=== PATIENT | female | born 1945 | race American Indian/Alaskan Native ===

== ENCOUNTER 2017-03-19 04:22 | Emergency (ER) | payer MEDICARE ==
[2017-03-19 04:22] VITALS: BMI 28.6
[2017-03-19 04:48] VITALS: O2SAT 98
--- NOTE | 2017-03-19 04:59 | ED PDOC ---
Arrival/HPI - General Chief Complaint: Abdominal Pain Time Seen by Provider: 03/19/17 04:52 Historian: Patient - History of Present Illness Narrative History of Present Illness (Text): 03/19/17 04:56 Aysah Edmondson is a 71 year old female, whose past medical history includes hypertension, hyperlipidemia, and asthma, who presents to the Emergency department complaining of right-sided flank pain radiating to her right abdomen tonight. Patient notes she was recently seen in the Emergency department for dysuria on 03/13/2017, diagnosed with a UTI, and discharged home on antibiotics. Patient states dysuria resolved 2 days prior but developed right- sided flank pain radiating to her right abdomen tonight. Patient denies any fever, chills, chest pain, shortness of breath, nausea, vomiting, diarrhea, neck pain, headache, dizziness, or any other complaints. Symptom Onset: Gradual Symptom Course: Unchanged Activities at Onset: Light Context: Home Past Medical History - Provider Review Nursing Documentation Reviewed: Yes - Infectious Disease Hx of Infectious Diseases: None - Tetanus Immunization Tetanus Immunization: Unknown - Reproductive Menopause: Yes - Cardiac Hx Cardiac Disorders: Yes Hx Hypertension: Yes - Pulmonary Hx Respiratory Disorders: Yes Hx Bronchitis: Yes - Neurological Hx Neurological Disorder: No - HEENT Hx HEENT Disorder: No (glasses) - Renal Hx Renal Disorder: No - Endocrine/Metabolic Hx Endocrine Disorders: No - Hematological/Oncological Hx Blood Disorders: No - Integumentary Hx Dermatological Disorder: No - Musculoskeletal/Rheumatological Hx Musculoskeletal Disorders: No - Gastrointestinal Hx Gastrointestinal Disorders: No - Genitourinary/Gynecological Hx Genitourinary Disorders: No - Psychiatric Hx Psychophysiologic Disorder: No Hx Substance Use: No - Past Surgical History Past Surgical History: No Previous - Surgical History Hx Hysterectomy: Yes Other/Comment: ovarian cyst removed; arteriogram - Anesthesia Hx Anesthesia: Yes Hx Anesthesia Reactions: No Hx Malignant Hyperthermia: No - Suicidal Assessment Feels Threatened In Home Enviroment: No Family/Social History - Physician Review Nursing Documentation Reviewed: Yes Family/Social History: Unknown Family HX Smoking Status: Never Smoked Hx Alcohol Use: No Hx Substance Use: No Hx Substance Use Treatment: No Allergies/Home Meds Allergies/Adverse Reactions: Allergies No Known Allergies Allergy (Verified 03/19/17 04:48) Home Medications: Home Meds Medication Instructions Recorded Confirmed Valsartan/Hydrochlorothiazide 1 tab PO DAILY 03/13/17 03/19/17 [Valsartan-Hctz 80-12.5 mg Tab] cloNIDine [Catapres] 0.2 mg PO TID 03/13/17 03/19/17 Review of Systems - Physician Review All systems were reviewed & negative as marked: Yes - Review of Systems Constitutional: Normal. absent: Fevers Eyes: Normal ENT: Normal Respiratory: Normal. absent: SOB, Cough Cardiovascular: Normal. absent: Chest Pain Gastrointestinal: Abdominal Pain. absent: Diarrhea, Nausea, Vomiting Genitourinary Female: Normal. absent: Dysuria, Frequency, Hematuria, Urine Output Changes Musculoskeletal: Back Pain. absent: Neck Pain Skin: Normal. absent: Rash Neurological: Normal. absent: Headache, Dizziness Endocrine: Normal Hemo/Lymphatic: Normal Psychiatric: Normal Physical Exam Vital Signs Reviewed: Yes Vital Signs Temp Pulse Resp BP Pulse Ox 03/19/17 04:43 99 F 78 18 174/97 H 98 03/19/17 04:35 99.0 F 61 16 174/97 H 99 Temperature: Afebrile Blood Pressure: Normal Pulse: Regular Respiratory Rate: Normal Appearance: Positive for: Well-Appearing, Non-Toxic, Comfortable Pain Distress: None Mental Status: Positive for: Alert and Oriented X 3 - Systems Exam Head: Present: Atraumatic, Normocephalic Pupils: Present: PERRL Extroacular Muscles: Present: EOMI Conjunctiva: Present: Normal Mouth: Present: Moist Mucous Membranes Neck: Present: Normal Range of Motion Respiratory/Chest: Present: Clear to Auscultation, Good Air Exchange. No: Respiratory Distress, Accessory Muscle Use Cardiovascular: Present: Regular Rate and Rhythm, Normal S1, S2. No: Murmurs Abdomen: Present: Normal Bowel Sounds. No: Tenderness, Distention, Peritoneal Signs Back: Present: Normal Inspection Upper Extremity: Present: Normal Inspection. No: Cyanosis, Edema Lower Extremity: Present: Normal Inspection. No: Edema Neurological: Present: GCS=15, CN II-XII Intact, Speech Normal Skin: Present: Warm, Dry, Normal Color. No: Rashes Psychiatric: Present: Alert, Oriented x 3, Normal Insight, Normal Concentration Medical Decision Making ED Course and Treatment: 03/19/17 04:56 Impression: 71 year old female complaining of right flank pain radiating to right abdomen tonight. Plan: -- Labs -- Urinalysis -- IV fluids -- Reassess and disposition Prior Visits: Notes and results from previous visits were reviewed. On 03/13/2017, pt was seen in the Emergency department for dysuria. Pt was d/c home on antibiotics. Progress Notes: - Lab Interpretations Lab Results: 03/19/17 05:22 03/19/17 05:22 Lab Results 03/19/17 05:22: WBC 3.8 L D, RBC 4.19, Hgb 12.3, Hct 36.9, MCV 88.1, MCH 29.4, MCHC 33.3, RDW 13.0, Plt Count 185, MPV 10.5 03/19/17 05:22: Sodium 141, Potassium 3.8, Chloride 105, Carbon Dioxide 26, Anion Gap 13, BUN 14, Creatinine 1.1, Est GFR ( Amer) 59, Est GFR (Non- Af Amer) 49, Random Glucose 104, Calcium 9.5, Total Bilirubin 0.5, AST 32, ALT 26, Alkaline Phosphatase 56, Total Protein 8.3, Albumin 4.5, Globulin 3.7, Albumin/Globulin Ratio 1.2 03/19/17 05:22: Urine Color Yellow, Urine Appearance Sl cloudy, Urine pH 6.0, Ur Specific [place] 1.025, Urine Protein Trace H, Urine Glucose (UA) Negative, Urine Ketones Negative, Urine Blood Negative, Urine Nitrate Negative, Urine Bilirubin Negative, Urine Urobilinogen 0.2, Ur Leukocyte Esterase Large H, Urine RBC 0 - 2, Urine WBC 25 - 30, Ur Epithelial Cells 10 - 12, Urine Bacteria Many - RAD Interpretation Radiology Orders: 03/19/17 06:42 ABD & PELVIS IV CONTRAST ONLY [CT] Stat - Medication Orders Current Medication Orders: Sodium Chloride (Sodium Chloride 0.9%) 1,000 mls @ 100 mls/hr IV .Q10H MAGDALENA Last Admin: 03/19/17 05:23 Dose: 100 mls/hr eMAR Start Stop Document 03/19/17 05:23 DERRICK (Rec: 03/19/17 05:23 DERRICK [id number]) Intravenous Solution Start Date 03/19/17 Start Time 05:23 Discontinued Medications Ketorolac Tromethamine (Toradol) 30 mg IVP ONCE ONE Stop: 03/19/17 06:39 - Transfer of Care Patient signed out to Patrick: [place] Pending Radiology Studies:: Ct Abdomen/pelvis/UA/reassess/final disposition - Scribe Statement The provider has reviewed the documentation as recorded by the Aleksey Brice Provider Scribe Attestation: All medical record entries made by the Scribe were at my direction and personally dictated by me. I have reviewed the chart and agree that the record accurately reflects my personal performance of the history, physical exam, medical decision making, and the department course for this patient. I have also personally directed, reviewed, and agree with the discharge instructions and disposition. Disposition/Present on Arrival - Present on Arrival Any Indicators Present on Arrival: No History of DVT/PE: No History of Uncontrolled Diabetes: No Urinary Catheter: No History of Decub. Ulcer: No History Surgical Site Infection Following: None - Disposition Have Diagnosis and Disposition been Completed?: No Diagnosis: Abdominal pain Disposition Time: 07:00 Patient Problems: Current Active Problems Problem Status Onset Abdominal pain Acute Condition: STABLE Referrals: Navi Leonard MD [Primary Care Provider] - Follow up with primary Forms: [employer] (Swedish)
[2017-03-19] MEDS ORDERED: Sodium Chloride 0.9% 1,000 ML IV SCH (05:00)
[2017-03-19 06:00] LABS: URINE BILIRUBIN NEGATIVE (NEGATIVE); URINE BLOOD NEGATIVE (NEGATIVE); URINE GLUCOSE (UA) NEGATIVE (NEGATIVE); URINE LEUKOCYTE ESTERASE LARGE Leu/uL (NEGATIVE); URINE NITRATE NEGATIVE (NEGATIVE); URINE PROTEIN TRACE mg/dL (<30 mg/dL); URINE UROBILINOGEN 0.2 E.U./dL (<1 E.U./dL)
[2017-03-19 06:20] LABS: ALB/GLOB RATIO 1.2 (1.1-1.8); ALBUMIN 4.5 g/dL (3.0-4.8); CALCIUM 9.5 mg/dL (8.4-10.5); HEMOGLOBIN 12.3 g/dL (12.0-16.0); MEAN CELL VOLUME 88.1 fl (80.0-105.0); RBC 4.19 10^6/uL (3.5-6.1); WHITE BLOOD COUNT 3.8 10^3/ul (4.5-11.0)
[2017-03-19 06:21] LABS: MEAN CORPUSCULAR HEMOGLOBIN 29.4 pg (25.0-35.0); MEAN CORPUSCULAR HGB CONC 33.3 g/dl (31.0-37.0); MEAN PLATELET VOLUME 10.5 fl (7.0-11.0)
[2017-03-19 06:54] LABS: URINE APPEARANCE SL CLOUDY (CLEAR); URINE COLOR YELLOW (YELLOW)
[2017-03-19 06:56] LABS: URINE BACTERIA MANY (NEG); URINE RBC 0 - 2 /hpf (0-2); URINE WBC 25 - 30 /hpf (0-6)
--- NOTE | 2017-03-19 07:16 | ED PDOC ---
Physical Exam Vital Signs Temp Pulse Resp BP Pulse Ox 03/19/17 08:00 66 16 145/80 98 03/19/17 04:43 99 F 78 18 174/97 H 98 03/19/17 04:35 99.0 F 61 16 174/97 H 99 Medical Decision Making ED Course and Treatment: 03/19/17 07:00 Case signed out to me by Dr. Dias. Patient is a 71 year old female, who presents to the Emergency department complaining of right-sided flank pain radiating to her right abdomen since 1 day. Patient notes being seen and d/c with UTI diagnosis in the Emergency department on 03/13/2017. Currently pending CT scan readings. 03/19/17 09:15 CT abdomen and pelvis: Creator : Stefan Alonso MD FINDINGS: LOWER THORAX: Unremarkable. LIVER: Unremarkable. No gross lesion or ductal dilatation. GALLBLADDER AND BILE DUCTS: Unremarkable. PANCREAS: Unremarkable. No gross lesion or ductal dilatation. SPLEEN: Unremarkable. ADRENALS: Unremarkable. No mass. KIDNEYS AND URETERS: Unremarkable. No hydronephrosis. No solid mass. VASCULATURE: Unremarkable. No aortic aneurysm. BOWEL: There is mild mural thickening in the descending colon. The finding is suspicious for a localize colitis. The remainder the colon is unremarkable. APPENDIX: Normal appendix. PERITONEUM: Unremarkable. No free fluid. No free air. LYMPH NODES: Unremarkable. No enlarged lymph nodes. BLADDER: Unremarkable. REPRODUCTIVE: Unremarkable. BONES: No acute fracture. OTHER FINDINGS: None. IMPRESSION: There is mild mural thickening in the descending colon. The finding is suspicious for a localized colitis. The remainder the colon is unremarkable. - Lab Interpretations Lab Results: 03/19/17 05:22 03/19/17 05:22 Lab Results 03/19/17 05:22: WBC 3.8 L D, RBC 4.19, Hgb 12.3, Hct 36.9, MCV 88.1, MCH 29.4, MCHC 33.3, RDW 13.0, Plt Count 185, MPV 10.5 03/19/17 05:22: Sodium 141, Potassium 3.8, Chloride 105, Carbon Dioxide 26, Anion Gap 13, BUN 14, Creatinine 1.1, Est GFR ( Amer) 59, Est GFR (Non- Af Amer) 49, Random Glucose 104, Calcium 9.5, Total Bilirubin 0.5, AST 32, ALT 26, Alkaline Phosphatase 56, Total Protein 8.3, Albumin 4.5, Globulin 3.7, Albumin/Globulin Ratio 1.2 03/19/17 05:22: Urine Color Yellow, Urine Appearance Sl cloudy, Urine pH 6.0, Ur Specific [place] 1.025, Urine Protein Trace H, Urine Glucose (UA) Negative, Urine Ketones Negative, Urine Blood Negative, Urine Nitrate Negative, Urine Bilirubin Negative, Urine Urobilinogen 0.2, Ur Leukocyte Esterase Large H, Urine RBC 0 - 2, Urine WBC 25 - 30, Ur Epithelial Cells 10 - 12, Urine Bacteria Many - RAD Interpretation Radiology Orders: 03/19/17 06:42 ABD & PELVIS IV CONTRAST ONLY [CT] Stat - Medication Orders Current Medication Orders: Sodium Chloride (Sodium Chloride 0.9%) 1,000 mls @ 100 mls/hr IV .Q10H MAGDALENA Last Admin: 03/19/17 05:23 Dose: 100 mls/hr eMAR Start Stop Document 03/19/17 05:23 [facility] (Rec: 03/19/17 05:23 [id number]) Intravenous Solution Start Date 03/19/17 Start Time 05:23 Discontinued Medications Ketorolac Tromethamine (Toradol) 30 mg IVP ONCE ONE Stop: 03/19/17 06:39 Last Admin: 03/19/17 07:15 Dose: 30 mg MAR Pain Assessment Document 03/19/17 07:15 YP (Rec: 03/19/17 07:15 YP [id number]) Pain Reassessment Is this a pain reassessment? No Sleep Is patient sleeping during reassessment? No Presence of Pain Presence of Pain Yes IVP Administration Document 03/19/17 07:15 YP (Rec: 03/19/17 07:15 YP [id number]) Charges for Administration # of IVP Administrations 1 - Scribe Statement The provider has reviewed the documentation as recorded by the Aleksey Ferrari Provider Scribe Attestation: All medical record entries made by the Scribe were at my direction and personally dictated by me. I have reviewed the chart and agree that the record accurately reflects my personal performance of the history, physical exam, medical decision making, and the department course for this patient. I have also personally directed, reviewed, and agree with the discharge instructions and disposition. Disposition/Present on Arrival - Present on Arrival Any Indicators Present on Arrival: No History of DVT/PE: No History of Uncontrolled Diabetes: No Urinary Catheter: No History of Decub. Ulcer: No History Surgical Site Infection Following: None - Disposition Have Diagnosis and Disposition been Completed?: Yes Diagnosis: Abdominal pain, UTI (urinary tract infection) Disposition: HOME/ ROUTINE Disposition Time: 09:30 Condition: STABLE Discharge Instructions (ExitCare): Urinary Tract Infection in Women (ED) Additional Instructions: Thank you for letting us take care of you today. The emergency medical care you received today was directed at your acute symptoms. If you were prescribed any medication, please fill it and take as directed. It may take several days for your symptoms to resolve. Return to the Emergency Department if your symptoms worsen, do not improve, or if you have any other problems. Please contact your doctor or call one of the physicians/clinics you have been referred to that are listed on the Patient Visit Information form that is included in your discharge packet. Bring any paperwork you were given at discharge with you along with any medications you are taking to your follow up visit. Our treatment cannot replace ongoing medical care by a primary care provider (PCP) outside of the emergency department. Thank you for allowing the [facility] team to be part of your care today. Continue taking the antibiotic as prescribed. Follow up with your primary doctor in 1-2 days for re-evaluation and further management. Prescriptions: traMADol [Ultram] 25 mg PO Q8 PRN #15 tab PRN Reason: Pain, Severe (8-10) Referrals: Navi Leonard MD [Primary Care Provider] - Follow up with primary Forms: [employer] (Samoan)
[2017-03-19] MEDS ORDERED: Iohexol 350 MG/100 ML VIAL ONE (07:49)
--- NOTE | 2017-03-19 09:11 | CT ---
PROCEDURE: CT Abdomen and Pelvis with contrast HISTORY: abdominal pain COMPARISON: None. TECHNIQUE: Contrast dose: 100 cc of Omni 350 Radiation dose: Total exam DLP = 543 mGy-cm. This CT exam was performed using one or more of the following dose reduction techniques: Automated exposure control, adjustment of the mA and/or kV according to patient size, and/or use of iterative reconstruction technique. FINDINGS: LOWER THORAX: Unremarkable. LIVER: Unremarkable. No gross lesion or ductal dilatation. GALLBLADDER AND BILE DUCTS: Unremarkable. PANCREAS: Unremarkable. No gross lesion or ductal dilatation. SPLEEN: Unremarkable. ADRENALS: Unremarkable. No mass. KIDNEYS AND URETERS: Unremarkable. No hydronephrosis. No solid mass. VASCULATURE: Unremarkable. No aortic aneurysm. BOWEL: There is mild mural thickening in the descending colon. The finding is suspicious for a localize colitis. The remainder the colon is unremarkable. APPENDIX: Normal appendix. PERITONEUM: Unremarkable. No free fluid. No free air. LYMPH NODES: Unremarkable. No enlarged lymph nodes. BLADDER: Unremarkable. REPRODUCTIVE: Unremarkable. BONES: No acute fracture. OTHER FINDINGS: None. IMPRESSION: There is mild mural thickening in the descending colon. The finding is suspicious for a localized colitis. The remainder the colon is unremarkable.
[2017-03-19 09:48] VITALS: BP 149/78; PULSE 62; RESP 18; TEMP 98.6
== END 2017-03-19 10:20 | disposition home or self-care (01) ==
LOC: ED 04:22
DX: R10.9 Unspecified abdominal pain (principal); I10 Essential (primary) hypertension; E78.5 Hyperlipidemia, unspecified
CPT/HCPCS: 74177; 80053; 81001; 85027; 87086; 96361; 96374; 99284; J1885; J7040; Q9967

== ENCOUNTER 2018-08-01 00:14 | Emergency (ER) | payer MEDICARE ==
[2018-08-01 00:14] VITALS: BMI 28.6
[2018-08-01 01:11] VITALS: TEMP 98
[2018-08-01 01:43] LABS: URINE APPEARANCE CLOUDY (CLEAR); URINE BILIRUBIN NEGATIVE (NEGATIVE); URINE BLOOD LARGE (NEGATIVE); URINE COLOR YELLOW (YELLOW); URINE GLUCOSE (UA) NEGATIVE (NEGATIVE); URINE LEUKOCYTE ESTERASE SMALL Leu/uL (NEGATIVE); URINE PROTEIN 30 mg/dL (<30 mg/dL); URINE UROBILINOGEN 0.2 E.U./dL (<1 E.U./dL)
--- NOTE | 2018-08-01 01:56 | ED PDOC ---
Arrival/HPI - General Chief Complaint: Female Genitourinary Time Seen by Provider: 08/01/18 00:26 Historian: Patient - History of Present Illness Narrative History of Present Illness (Text): 08/01/18 01:52 72 year old female, whose past medical history includes hypertension, presents to the emergency department complaining of frequent burning. Patient informs of associated burning upon urination. Patient is unsure if burning is from vagina or urethra. Patient denies being sexually active. Patient denies any fever, chills, back pain, vaginal discharge, abdominal pain, nausea, vomiting, diarrhea, headache, dizziness, or any other complaint. Time/Duration: Prior to Arrival, 24 hours Symptom Onset: Gradual Symptom Course: Unchanged Quality: Burning Activities at Onset: Light Context: Home Past Medical History - Provider Review Nursing Documentation Reviewed: Yes - Infectious Disease Hx of Infectious Diseases: None - Tetanus Immunization Tetanus Immunization: Unknown - Cardiac Hx Cardiac Disorders: Yes Hx Hypertension: Yes - Pulmonary Hx Respiratory Disorders: Yes Hx Bronchitis: Yes - Neurological Hx Neurological Disorder: No - HEENT Hx HEENT Disorder: No (glasses) - Renal Hx Renal Disorder: No - Endocrine/Metabolic Hx Endocrine Disorders: No - Hematological/Oncological Hx Blood Disorders: No - Integumentary Hx Dermatological Disorder: No - Musculoskeletal/Rheumatological Hx Musculoskeletal Disorders: No - Gastrointestinal Hx Gastrointestinal Disorders: No - Genitourinary/Gynecological Hx Genitourinary Disorders: No - Psychiatric Hx Psychophysiologic Disorder: No Hx Substance Use: No - Past Surgical History Past Surgical History: No Previous - Surgical History Hx Hysterectomy: Yes Other/Comment: ovarian cyst removed; arteriogram - Anesthesia Hx Anesthesia: Yes Hx Anesthesia Reactions: No Hx Malignant Hyperthermia: No - Suicidal Assessment Feels Threatened In Home Enviroment: No Family/Social History - Physician Review Nursing Documentation Reviewed: Yes Family/Social History: No Known Family HX Smoking Status: Never Smoked Hx Alcohol Use: No Hx Substance Use: No Hx Substance Use Treatment: No Allergies/Home Meds Allergies/Adverse Reactions: Allergies No Known Allergies Allergy (Verified 08/01/18 01:08) Home Medications: Home Meds Medication Instructions Recorded Confirmed Valsartan/Hydrochlorothiazide 1 tab PO DAILY 03/13/17 08/01/18 [Valsartan-Hctz 80-12.5 mg Tab] cloNIDine [Catapres] 0.2 mg PO TID 03/13/17 08/01/18 Review of Systems - Physician Review All systems were reviewed & negative as marked: Yes - Review of Systems Constitutional: absent: Fevers, Night Sweats Respiratory: absent: SOB, Cough Cardiovascular: absent: Chest Pain Gastrointestinal: absent: Abdominal Pain, Diarrhea, Nausea, Vomiting Genitourinary Female: Dysuria, Frequency. absent: Normal, Vaginal Discharge Musculoskeletal: absent: Back Pain Neurological: absent: Headache, Dizziness Physical Exam Vital Signs Reviewed: Yes Vital Signs Temp Pulse Resp BP Pulse Ox 08/01/18 01:10 98.0 F 67 18 146/92 H 98 Temperature: Afebrile Blood Pressure: Hypertensive Pulse: Regular Respiratory Rate: Normal Appearance: Positive for: Well-Appearing, Non-Toxic, Comfortable Pain Distress: None Mental Status: Positive for: Alert and Oriented X 3 - Systems Exam Head: Present: Atraumatic, Normocephalic Pupils: Present: PERRL Extroacular Muscles: Present: EOMI Conjunctiva: Present: Normal Mouth: Present: Moist Mucous Membranes Neck: Present: Normal Range of Motion Respiratory/Chest: Present: Clear to Auscultation, Good Air Exchange. No: Respiratory Distress, Accessory Muscle Use Cardiovascular: Present: Regular Rate and Rhythm, Normal S1, S2. No: Murmurs Abdomen: No: Tenderness, Distention, Peritoneal Signs Genitourinary/Pelvic Exam: Present: Normal External Genitalia. No: Vaginal Discharge, Odor, Other (No erythema vaginal introitus) Back: Present: Normal Inspection. No: CVA Tenderness Upper Extremity: Present: Normal Inspection. No: Cyanosis, Edema Lower Extremity: Present: Normal Inspection. No: Edema Neurological: Present: GCS=15, CN II-XII Intact, Speech Normal, Motor Func Grossly Intact, Normal Sensory Function Skin: Present: Warm, Dry, Normal Color. No: Rashes Psychiatric: Present: Alert, Oriented x 3, Normal Insight, Normal Concentration Medical Decision Making ED Course and Treatment: 08/01/18 01:58 Impression: 72 year old female presents with dysuria, and urinary frequency. Plan: -- Motrin -- Urine culture -- Urinalysis -- Reassess and disposition Prior Visits: Notes and results from previous visits were reviewed. Progress Notes: - Lab Interpretations Lab Results: Urine Color Yellow (YELLOW) 08/01/18 01:05 Urine Appearance Cloudy (CLEAR) 08/01/18 01:05 Urine pH 6.0 (4.7-8.0) 08/01/18 01:05 Ur Specific [place] 1.025 (1.005-1.035) 08/01/18 01:05 Urine Protein 30 mg/dL (<30 mg/dL) H 08/01/18 01:05 Urine Glucose (UA) Negative mg/dL (NEGATIVE) 08/01/18 01:05 Urine Ketones Negative mg/dL (NEGATIVE) 08/01/18 01:05 Urine Blood Large (NEGATIVE) H 08/01/18 01:05 Urine Nitrate Negative (NEGATIVE) 08/01/18 01:05 Urine Bilirubin Negative (NEGATIVE) 08/01/18 01:05 Urine Urobilinogen 0.2 E.U./dL (<1 E.U./dL) 08/01/18 01:05 Ur Leukocyte Esterase [place]/uL (NEGATIVE) H 08/01/18 01:05 - Medication Orders Current Medication Orders: Discontinued Medications Tramadol HCl (Ultram) 50 mg PO STAT STA Stop: 08/01/18 01:46 - Scribe Statement The provider has reviewed the documentation as recorded by the Hollyibfili Najera Provider Scribe Attestation: All medical record entries made by the Scribe were at my direction and personally dictated by me. I have reviewed the chart and agree that the record accurately reflects my personal performance of the history, physical exam, medical decision making, and the department course for this patient. I have also personally directed, reviewed, and agree with the discharge instructions and disposition. Disposition/Present on Arrival - Present on Arrival Any Indicators Present on Arrival: No History of DVT/PE: No History of Uncontrolled Diabetes: No Urinary Catheter: No History of Decub. Ulcer: No History Surgical Site Infection Following: None - Disposition Have Diagnosis and Disposition been Completed?: Yes Diagnosis: UTI (urinary tract infection) Disposition: HOME/ ROUTINE Disposition Time: 03:00 Patient Plan: Discharge Condition: GOOD Discharge Instructions (ExitCare): Urinary Tract Infection, Adult (DC) Additional Instructions: Drink plenty of liquids/take meds as prescribed/follow up with your doctor this week Prescriptions: Cephalexin [cephalexin] 500 mg PO BID #10 cap Naproxen [Naprosyn] 500 mg PO BID PRN #12 tab PRN Reason: Pain Referrals: Navi Leonard MD [Primary Care Provider] - Follow up with primary Forms: [employer] ([place])
[2018-08-01 02:03] LABS: URINE BACTERIA MOD /hpf; URINE RBC TNTC /hpf (0-2)
[2018-08-01 03:25] VITALS: BP 136/78; PULSE 88; RESP 16; O2SAT 100
== END 2018-08-01 03:17 | disposition home or self-care (01) ==
LOC: ED 00:14
DX: N39.0 Urinary tract infection, site not specified (principal)